=== PATIENT | female | born 1945 | race Two or more races ===

== ENCOUNTER → 2017-03-01 | Outpatient (CLI) | payer OTHER ==
[~2017-03-01] MED LIST: ALLO100T PO; ASPI81TA33 PO; ATOR10TA84 PO; CHOL200018 PO; DILT240C93 PO; ESCI20TA PO; GABA-531 PO; HYDR25TA84 PO; METF500T4 PO; OMEP20 PO
== END | disposition home or self-care (01) ==
LOC: RESP 08:58
PROVIDERS: ATTEND Internal Medicine Critical Care Medicine
DX: G47.33 Obstructive sleep apnea (adult) (pediatric) (principal); I10 Essential (primary) hypertension; E11.9 Type 2 diabetes mellitus without complications
CPT/HCPCS: 94010; 94726; 94727; 94729